=== PATIENT | female | born 1940 | race Caucasian/White ===

== ENCOUNTER 2022-04-11 19:39 | Inpatient (IN) | payer OTHER ==
[2022-04-11] MEDS ORDERED: SODIUM CHLORIDE 0.9% 1000 ML INFUS.BAG IV ONE (20:07)
[2022-04-11] MEDS ORDERED: DEXTROSE 50%-WATER 25 GM/50 ML DISP.SYRIN ONE (20:07)
[2022-04-11] MEDS ORDERED: DEXTROSE 50%-WATER - 25 GM/50 ML VIAL IVPUSH ONE ×4 (20:07→20:28)
[2022-04-11 20:08] VITALS: BMI 19.5
[2022-04-11] MEDS ORDERED: HYDROCORTISONE SOD SUCCINATE 100 MG/2 ML VIAL ONE (20:16)
[2022-04-11] MEDS ORDERED: PIPERACILLIN/TAZOB 3.375 GM 3.375 GM in DEXTROSE 5%-WATER - 50 ML IVPB ONE (20:25)
[2022-04-11] MEDS ORDERED: VANCOMYCIN 1 GM/200 ML PREMIX BAG (RESTRICTED TO ID ONLY) IVPB ONE (20:25)
[2022-04-11] MEDS ORDERED: HYDROCORTISONE SOD SUCCINATE 100 MG/2 ML VIAL IVPUSH ONE (20:26)
[2022-04-11 20:32] LABS: ARTERIAL BLD GAS O2 SATURATION 99.5 % (95-98); ARTERIAL BLOOD GAS BASE EXCESS -13.5 mmol/L (-2-2); ARTERIAL BLOOD GAS PO2 268.2 mmHg (80-100)
[2022-04-11 20:35] LABS: BASO % 0.1 % (0-2.0); HEMATOCRIT 16.2 % (32.4-45.2); LYMPH % 48.5 % (8-40); MCH 30.6 pg (25.7-33.7); MCHC 27.4 g/dl (32.0-36.0); MEAN CELL VOLUME 111.5 fl (80-96); MEAN PLT VOLUME 8.7 fl (7.5-11.1); NEUT % 49.4 % (42.8-82.8); PLATELET COUNT 227 10^3/uL (134-434); RBC 1.45 M/mm3 (3.60-5.2); RDW 22.3 % (11.6-15.6)
[2022-04-11 20:37] LABS: ARTERIAL BLOOD GAS pH 7.178 (7.350-7.450)
[2022-04-11 20:39] LABS: HEMOGLOBIN 4.4 GM/dL (10.7-15.3); INR 2.07 (0.83-1.09); WHITE BLOOD COUNT 1.7 K/mm3 (4.0-10.0)
[2022-04-11 20:43] LABS: ACTIVATED PTT 36.3 SECONDS (25.2-36.5)
[2022-04-11 21:02] LABS: EPI CELLS 16 /uL (0-25.1); HYALINE CASTS 1 /uL (0-3.1); PH,URINE 6.5 (5.0-8.0); URINE APPEARANCE CLOUDY; URINE BACTERIA 2839 /uL (0-1359); URINE BILIRUBIN NEGATIVE (NEGATIVE); URINE COLOR YELLOW; URINE GLUCOSE (UA) NEGATIVE (NEGATIVE); URINE KETONE NEGATIVE (NEGATIVE); URINE LEUK ESTERASE NEGATIVE (NEGATIVE); URINE NITRITE NEGATIVE (NEGATIVE); URINE PROTEIN 2+ (NEGATIVE); URINE RBC 29 /uL (0-23.9); URINE WBC 18 /uL (0-25.8)
[2022-04-11 21:26] LABS: ANISOCYTOSIS 3+; MACROCYTOSIS 2+; TARGET CELLS 1+
[2022-04-11 21:31] LABS: LACTIC ACID 10.8 mmol/L (0.4-2.0)
[2022-04-11 22:13] LABS: HEMATOCRIT 17.5 % (32.4-45.2); MCH 30.8 pg (25.7-33.7); MCHC 29.9 g/dl (32.0-36.0); MEAN CELL VOLUME 102.9 fl (80-96); MEAN PLT VOLUME 8.4 fl (7.5-11.1); PLATELET COUNT 263 10^3/uL (134-434); RDW 21.5 % (11.6-15.6)
[2022-04-11 22:17] LABS: ALBUMIN 1.3 g/dl (3.4-5.0); ALK PHOS 45 U/L (45-117); ANION GAP 19 MMOL/L (8-16); BILIRUBIN,TOTAL 0.5 mg/dL (0.2-1); BLOOD UREA NITROGEN 37.4 mg/dL (7-18); CHLORIDE 98 mmol/L (98-107); CO2 14 mmol/L (21-32); CREATININE 2.3 mg/dL (0.55-1.3); GLUCOSE,RANDOM 1453 mg/dL (74-106); MAGNESIUM 2.4 mg/dL (1.8-2.4); SGOT/AST 23 U/L (15-37); SGPT/ALT 10 U/L (13-61); SODIUM 131 mmol/L (136-145); TOT PROT 4.6 g/dl (6.4-8.2)
[2022-04-11 22:24] LABS: ARTERIAL BLD GAS O2 SATURATION 98.9 % (95-98); ARTERIAL BLOOD GAS BASE EXCESS -15.6 mmol/L (-2-2); ARTERIAL BLOOD GAS PO2 182.7 mmHg (80-100); HEMOGLOBIN 5.2 GM/dL (10.7-15.3); WHITE BLOOD COUNT 1.2 K/mm3 (4.0-10.0)
[2022-04-11 22:28] LABS: CHLORIDE 107 mmol/L (98-107); SODIUM 140 mmol/L (136-145)
[2022-04-11 22:29] LABS: ARTERIAL BLOOD GAS pH 7.161 (7.350-7.450)
[2022-04-11 22:30] LABS: CALCIUM 8.2 mg/dL (8.5-10.1)
[2022-04-11 22:31] LABS: ALBUMIN 1.6 g/dl (3.4-5.0); ANION GAP 22 MMOL/L (8-16); BLOOD UREA NITROGEN 38.7 mg/dL (7-18); CO2 11 mmol/L (21-32)
[2022-04-11 22:34] LABS: CREATININE 1.9 mg/dL (0.55-1.3); SGOT/AST 67 U/L (15-37); SGPT/ALT 20 U/L (13-61)
[2022-04-11 22:36] LABS: BILIRUBIN,TOTAL 0.4 mg/dL (0.2-1); TOT PROT 5.4 g/dl (6.4-8.2)
[2022-04-11 22:37] LABS: ALK PHOS 55 U/L (45-117)
[2022-04-11 22:43] LABS: GLUCOSE,RANDOM 480 mg/dL (74-106)
[2022-04-11 22:50] LABS: LACTIC ACID 11.6 mmol/L (0.4-2.0)
[2022-04-11] MEDS ORDERED: SODIUM BICARBONATE 8.4% 50 MEQ/50 ML DISP.SYRIN IVPUSH ONE (23:29)
[2022-04-11] MEDS ORDERED: SODIUM BICARBONATE 8.4% - 100 ML ONE (23:33)
[2022-04-11] MEDS ORDERED: PIPERACILLIN/TAZOB 3.375 GM 3.375 GM/50 ML BAG IVPB ONE (23:33)
[2022-04-11] MEDS ORDERED: VANCOMYCIN/WATER FOR INJ (PEG) 1,000 MG/200 ML BAG IVPB ONE (23:33)
[2022-04-11] MEDS ORDERED: SODIUM BICARBONATE 8.4% - 50 ML ONE (23:45)
[2022-04-11 23:46] LABS: LDH 270 U/L (84-246)
[2022-04-12] MEDS ORDERED: VANCOMYCIN 750 MG PREMIX BAG (RESTRICTED TO ID ONLY) SCH (00:15)
[2022-04-12] MEDS ORDERED: CALCIUM GLUCONATE IN NACL 1 GM/50 ML BAG IVPB ONE ×2 (00:15→04:45)
[2022-04-12] MEDS ORDERED: NOREPINEPHRINE BITARTRATE 4 MG/4 ML ML IV ONE (01:11)
[2022-04-12] MEDS ORDERED: RAPID SEQUENCE INTUBATION KIT NR ONE (01:12)
[2022-04-12] MEDS ORDERED: INSULIN (NOVOLOG) ASPART 100 UNITS/ML 10ML VIAL SQ ONE (01:13)
[2022-04-12] MEDS ORDERED: NOREPINEPHRINE BITARTRATE/D5W 8 MG/250 ML BAG IVPB ONE (01:16)
[2022-04-12] MEDS ORDERED: MIDAZOLAM IN 0.9 % SOD.CHLORID 1 MG/1 ML PLAST..BAG ONE (01:26)
[2022-04-12] MEDS ORDERED: ETOMIDATE 40 MG/20 ML VIAL IVPUSH ONE (01:38)
[2022-04-12] MEDS ORDERED: ROCURONIUM BROMIDE 50 MG/5 ML VIAL IV ONE (01:38)
[2022-04-12] MEDS ORDERED: MIDAZOLAM IN 0.9 % SOD.CHLORID 100 MG/100 ML PLAST..BAG IVPB SCH ×2 (01:45→02:45)
[2022-04-12] MEDS ORDERED: FENTANYL IVPB 500 MCG/100 ML BAG IVPB SCH (01:45)
[2022-04-12] MEDS ORDERED: NOREPINEPHRINE BITARTRATE/D5W 8 MG/250 ML BAG IVPB SCH (01:45)
[2022-04-12] MEDS ORDERED: VASOPRESSIN 40 UNITS in SODIUM CHLORIDE 98 ML IVPB SCH (02:45)
[2022-04-12] MEDS ORDERED: NOREPINEPHRINE BITARTRATE 4,000 MCG in DEXTROSE 5%-WATER - 496 ML IV SCH (02:45)
[2022-04-12] MEDS ORDERED: VASOPRESSIN 20 UNITS/ML VIAL IV ONE (04:09)
[2022-04-12] MEDS: HYDROCORTISONE SOD SUCCINATE 100 MG/2 ML VIAL IVPB SCH ×2 (04:43→10:21)
[2022-04-12] MEDS ORDERED: FENTANYL NS IVPB 500 MCG/100 ML BAG IVPB SCH ×2 (05:27→05:45)
[2022-04-12 05:56] LABS: HEMATOCRIT 35.6 % (32.4-45.2); HEMOGLOBIN 11.3 GM/dL (10.7-15.3); MCH 30.3 pg (25.7-33.7); MCHC 31.6 g/dl (32.0-36.0); MEAN CELL VOLUME 95.9 fl (80-96); MEAN PLT VOLUME 8.6 fl (7.5-11.1); PLATELET COUNT 189 10^3/uL (134-434); RBC 3.71 M/mm3 (3.60-5.2); RDW 18.4 % (11.6-15.6)
[2022-04-12 06:06] LABS: INR 1.71 (0.83-1.09); PROTHROMBIN TIME (PATIENT) 19.8 SEC (9.7-13.0)
[2022-04-12 06:09] LABS: ACTIVATED PTT 29.4 SECONDS (25.2-36.5)
[2022-04-12 06:10] LABS: BLOOD UREA NITROGEN 38.3 mg/dL (7-18); CALCIUM 8.9 mg/dL (8.5-10.1)
[2022-04-12 06:11] LABS: MAGNESIUM 2.6 mg/dL (1.8-2.4)
[2022-04-12 06:14] LABS: CREATININE 1.9 mg/dL (0.55-1.3); PHOSPHOROUS 6.9 mg/dL (2.5-4.9)
[2022-04-12 06:18] LABS: LACTIC ACID 12.6 mmol/L (0.4-2.0)
[2022-04-12 07:28] LABS: ALBUMIN 1.8 g/dl (3.4-5.0)
[2022-04-12 07:31] LABS: BILIRUBIN,DIRECT 0.3 mg/dL (0.0-0.2)
[2022-04-12 07:33] LABS: BILIRUBIN,TOTAL 0.6 mg/dL (0.2-1)
[2022-04-12 08:43] LABS: HEMATOCRIT 36.3 % (32.4-45.2); HEMOGLOBIN 11.4 GM/dL (10.7-15.3); MCH 29.7 pg (25.7-33.7); MCHC 31.5 g/dl (32.0-36.0); MEAN CELL VOLUME 94.4 fl (80-96); MEAN PLT VOLUME 8.4 fl (7.5-11.1); PLATELET COUNT 142 10^3/uL (134-434); RBC 3.85 M/mm3 (3.60-5.2); RDW 17.3 % (11.6-15.6)
[2022-04-12 08:45] LABS: WHITE BLOOD COUNT 2.7 K/mm3 (4.0-10.0)
[2022-04-12] MEDS ORDERED: DEXTROSE 50%-WATER - 25 GM/50 ML VIAL IVPUSH PRN (09:43)
[2022-04-12] MEDS ORDERED: DEXTROSE 50%-WATER 25 GM/50 ML DISP.SYRIN ONE ×2 (09:54→13:18)
[2022-04-12 09:56] LABS: ANISOCYTOSIS 2+; MACROCYTOSIS 0
[2022-04-12 09:57] LABS: CORRECTED WBC 3.86 K/mm3; WHITE BLOOD COUNT 4.9 K/mm3 (4.0-10.0)
[2022-04-12] MEDS ORDERED: PIPERACILLIN/TAZOB 3.375 GM 3.375 GM in DEXTROSE 5%-WATER - 50 ML IVPB SCH (10:00)
[2022-04-12] MEDS ORDERED: LEVOTHYROXINE SODIUM 100 MCG 5 ML VIAL IVPUSH SCH (10:00)
[2022-04-12] MEDS ORDERED: PIPERACILLIN/TAZOB 2.25 GM 2.25 GM in DEXTROSE 5%-WATER - 50 ML IVPB SCH (10:00)
[2022-04-12] MEDS ORDERED: PANTOPRAZOLE SODIUM 40 MG VIAL IVPUSH SCH (10:00)
[2022-04-12] MEDS ORDERED: MUPIROCIN 2% TOPICAL OINTMENT FOR DECOLONIZATION NS SCH (10:00)
[2022-04-12 10:03] LABS: ANISOCYTOSIS 1+; CORRECTED WBC 2.29 K/mm3; MACROCYTOSIS 1+; PLATELET ESTIMATE DECREASED
[2022-04-12] MEDS: PIPERACILLIN/TAZOB 2.25 GM 2.25 GM in DEXTROSE 5%-WATER - 50 ML IVPB SCH ×2 (10:20→14:25)
[2022-04-12] MEDS ORDERED: SODIUM BICARBONATE 8.4% 50 MEQ/50 ML VIAL IV ONE (10:21)
[2022-04-12] MEDS ORDERED: ROCURONIUM BROMIDE 50 MG/5 ML SYRINGE ONE (10:36)
[2022-04-12] MEDS ORDERED: FENTANYL CITRATE/PF 50 MCG/ML VIAL ONE (11:13)
[2022-04-12 11:20] LABS: HEMATOCRIT 32.3 % (32.4-45.2); MCH 30.2 pg (25.7-33.7); MCHC 31.1 g/dl (32.0-36.0); MEAN CELL VOLUME 97.1 fl (80-96); MEAN PLT VOLUME 8.4 fl (7.5-11.1); PLATELET COUNT 105 10^3/uL (134-434); RBC 3.33 M/mm3 (3.60-5.2); RDW 18.1 % (11.6-15.6)
[2022-04-12 11:21] LABS: ARTERIAL BLD GAS O2 SATURATION 99.6 % (95-98); ARTERIAL BLOOD GAS BASE EXCESS -23.4 mmol/L (-2-2); ARTERIAL BLOOD GAS PO2 369.2 mmHg (80-100)
[2022-04-12 11:22] LABS: WHITE BLOOD COUNT 2.7 K/mm3 (4.0-10.0)
[2022-04-12 11:23] LABS: VENT RATE 18
[2022-04-12 11:25] LABS: ARTERIAL BLOOD GAS pH 7.039 (7.350-7.450)
[2022-04-12 11:37] LABS: CHLORIDE 109 mmol/L (98-107); SODIUM 138 mmol/L (136-145)
[2022-04-12 11:40] LABS: BLOOD UREA NITROGEN 39.3 mg/dL (7-18); CALCIUM 9.3 mg/dL (8.5-10.1); CO2 7 mmol/L (21-32); GLUCOSE,RANDOM 328 mg/dL (74-106); MAGNESIUM 2.6 mg/dL (1.8-2.4)
[2022-04-12 11:43] LABS: CREATININE 2.1 mg/dL (0.55-1.3); PHOSPHOROUS 8.6 mg/dL (2.5-4.9); SGPT/ALT 313 U/L (13-61)
[2022-04-12 11:44] LABS: TOT PROT 4.8 g/dl (6.4-8.2)
[2022-04-12 11:45] LABS: BILIRUBIN,TOTAL 0.8 mg/dL (0.2-1)
[2022-04-12 11:46] LABS: ALK PHOS 72 U/L (45-117)
[2022-04-12 11:48] LABS: ANISOCYTOSIS 1+; CORRECTED WBC 2.23 K/mm3; MACROCYTOSIS 1+; PLATELET ESTIMATE DECREASED
[2022-04-12 11:56] LABS: ALBUMIN 1.4 g/dl (3.4-5.0); ANION GAP 22 MMOL/L (8-16); SGOT/AST 1776 U/L (15-37)
[2022-04-12 12:06] LABS: ARTERIAL BLOOD GAS BASE EXCESS -25.7 mmol/L (-2-2); ARTERIAL BLOOD GAS PO2 499.3 mmHg (80-100); ARTERIAL BLOOD GAS pH 6.871 (7.350-7.450)
[2022-04-12 12:16] LABS: ALLENS TEST POSITIVE; ARTERIAL BLD GAS O2 SATURATION 99.7 % (95-98)
[2022-04-12] MEDS: ALBUMIN HUMAN 25% 12.5 GM/50 ML VIAL IV SCH ×2 (12:43→12:44)
[2022-04-12] MEDS ORDERED: SODIUM BICARBONATE 8.4% 50 MEQ/50 ML DISP.SYRIN IV ONE (12:50)
[2022-04-12 12:54] VITALS: RESP 18
[2022-04-12] MEDS ORDERED: CALCIUM GLUCONATE 10% - 1,000 MG/10 ML VIAL IVPUSH ONE (13:14)
[2022-04-12] MEDS ORDERED: INSULIN REGULAR HUMAN 100 UNITS/ML *VIAL IVPUSH ONE (13:21)
[2022-04-12] MEDS ORDERED: DEXTROSE 50%-WATER 25 GM/50 ML DISP.SYRIN IVPUSH ONE (13:21)
[2022-04-12] MEDS ORDERED: SODIUM BICARBONATE 8.4% - 150 MEQ in DEXTROSE 5%-WATER - 950 ML IVPB SCH (13:30)
[2022-04-12 14:25] VITALS: BP 127/79; PULSE 128; TEMP 96.6
[2022-04-12] MEDS ORDERED: LACTATED RINGERS SOLUTION 1,000 ML/1,000 ML INFUS.BAG IV ONE (15:40)
[2022-04-12] MEDS ORDERED: LACTATED RINGERS SOLUTION 1,000 ML/1,000 ML INFUS.BAG IV SCH (15:45)
[2022-04-12] MEDS ORDERED: CHLORHEXIDINE GLUCONATE 4% CLEANSER FOR DECOLONIZATION TP SCH (22:00)
[2022-04-13] MEDS ORDERED: VANCOMYCIN 1 GM/200 ML PREMIX BAG (RESTRICTED TO ID ONLY) IVPB SCH
[2022-04-13] MEDS ORDERED: PIPERACILLIN/TAZOB 2.25 GM 2.25 GM in DEXTROSE 5%-WATER - 50 ML IVPB SCH (10:00)
[2022-04-14] MEDS ORDERED: VANCOMYCIN 1 GM/200 ML PREMIX BAG (RESTRICTED TO ID ONLY) IVPB SCH
== END 2022-04-12 17:53 | disposition expired | DRG 853 ==
LOC: JER 19:39 → JERBED 22:34 → JICU 04-12 03:18
PROVIDERS: ADMIT Internal Medicine; ATTEND Family Medicine
PROC: 0WJG0ZZ Inspection of Peritoneal Cavity, Open Approach (ICD-10-PCS; 2022-04-12)
PROC: 30233N1 Transfusion of Nonautologous Red Blood Cells into Peripheral Vein, Percutaneous Approach (ICD-10-PCS; 2022-04-12)
PROC: 4A133B1 Monitoring of Arterial Pressure, Peripheral, Percutaneous Approach (ICD-10-PCS; 2022-04-12)
PROC: 4A133J1 Monitoring of Arterial Pulse, Peripheral, Percutaneous Approach (ICD-10-PCS; 2022-04-12)
PROC: 05HM33Z Insertion of Infusion Device into Right Internal Jugular Vein, Percutaneous Approach (ICD-10-PCS; 2022-04-12)
PROC: B543ZZA Ultrasonography of Right Jugular Veins, Guidance (ICD-10-PCS; 2022-04-12)
PROC: 5A1935Z Respiratory Ventilation, Less than 24 Consecutive Hours (ICD-10-PCS; 2022-04-12)
PROC: 0BH17EZ Insertion of Endotracheal Airway into Trachea, Via Natural or Artificial Opening (ICD-10-PCS; 2022-04-12)
PROC: 0W9G0ZX Drainage of Peritoneal Cavity, Open Approach, Diagnostic (ICD-10-PCS; principal; 2022-04-12 11:17)
DX: A41.9 Sepsis, unspecified organism (principal); G92.8 Other toxic encephalopathy; J96.01 Acute respiratory failure with hypoxia; R65.21 Severe sepsis with septic shock; K72.00 Acute and subacute hepatic failure without coma; J18.9 Pneumonia, unspecified organism; E46 Unspecified protein-calorie malnutrition; D68.9 Coagulation defect, unspecified; C48.2 Malignant neoplasm of peritoneum, unspecified; R18.8 Other ascites; R57.0 Cardiogenic shock; I46.9 Cardiac arrest, cause unspecified; E03.9 Hypothyroidism, unspecified; K66.8 Other specified disorders of peritoneum; R19.8 Other specified symptoms and signs involving the digestive system and abdomen
CPT/HCPCS: 0241U-QW; 36415; 36430; 36600; 70450-TC; 71045-TC-FY; 71250-TC; 74176-TC; 80048; 80053; 80076; 81003; 82308; 82803; 82962; 83010; 83605; 83615; 83735; 84100; 84436; 84439; 84443; 84479; 84484; 85025; 85027; 85610; 85730; 86140; 86850; 86900; 86901; 86922; 87040; 87076; 87086; 88305-TC; 93005; 93010; 94002; 99291; 99292; J1250; P9058